=== PATIENT | male | born 1975 | race African-American/Black ===

== ENCOUNTER → 2018-04-12 | Outpatient (CLI) | payer BC | LOC: COL.RAD 08:59 | DX: R74.0 Nonspecific elevation of levels of transaminase and lactic acid dehydrogenase [LDH] (principal) ==

== ENCOUNTER 2019-09-06 10:59 | Emergency (ER) | payer BC ==
[~2019-09-06] VITALS: Ht 177.8 cm; Wt 97.7 kg
[~2019-09-06 10:59] MED LIST: CEPHALEXIN500 M1 PO; CIPRO 500MG TA500 MG PO; DESYREL 50MG50 MG PO; FAMVIR 500500 MG/TAB PO; LORTAB 5/500 501 TAB PO; LOZOL1.25 MG PO; MUCINEX 60600 MG/TA1 PO; MULTI VITAMINS1 TAB PO; NO HOME MEDICATIONS; PERCOCET 325 MG1 TA2 PO; ZESTRIL 10MG10 MG PO
[2019-09-06 12:12] LABS: BASO % 0.2 % (0.0-2.0); EOS % 0.2 % (0-4.0); GRAN # 8.5 (1.4-6.5); HEMATOCRIT 44.6 % (42.0-52.0); HEMOGLOBIN 14.9 g/dl (13.5-18.0); LYMPH # 1.9 (1.2-3.4); LYMPH % 17.1 % (20.0-51.0); MEAN CELL VOLUME 89 fl (80.0-100.0); MEAN CORPUSCULAR HEMOGLOBIN 30 pg (27.0-31.0); MEAN CORPUSCULAR HGB CONC 33 g/dl (33.0-37.0); MEAN PLATELET VOLUME 12.2 fl (7.4-10.4); MONO # 0.8 (0.1-0.6); MONO % 7.3 % (1.7-9.3); PLATELET COUNT 238 K/mm3 (130-400); RED BLOOD COUNT 5.01 M/mm3 (4.20-5.60); REDCELL DISTRIBUTION WIDTH-CV 11.6 % (11.5-14.5)
[2019-09-06 13:04] LABS: ALBUMIN 4.4 gm/dL (3.5-5.0); C-REACTIVE PROTEIN 4.9 mg/dL (0.0-0.9); CALCIUM 9.3 mg/dL (8.4-10.2); CREATININE, serum 1.17 (0.66-1.25); POTASSIUM 3.3 mmol/L (3.4-5.0); TOTAL PROTEIN 8.7 gm/dL (6.4-8.2)
[2019-09-06 13:12] LABS: TROPONIN-I 0.017 ng/mL (0.000-0.035)
[2019-09-06 17:21] VITALS: BP 112/82; PULSE 61; TEMP 98.9
[2019-09-06] MEDS ORDERED: ZOFRAN ODT4 MG PO (17:35)
== END 2019-09-06 17:21 | disposition home or self-care (01) ==
LOC: COL.ER 10:59
PROVIDERS: Physician Assistant
DX: R06.02 Shortness of breath (principal); R11.0 Nausea; I10 Essential (primary) hypertension; Z88.1 Allergy status to other antibiotic agents; Z20.828 Contact with and (suspected) exposure to other viral communicable diseases
CPT/HCPCS: J2405; J7030

== ENCOUNTER → 2022-05-04 | Outpatient (CLI) | payer BC ==
[~2022-05-04] MED LIST changes: +PRILOSEC 20MG20 MG PO; +ZOFRAN ODT4 MG PO
== END ==
LOC: COL.PUL 10:53
DX: Z00.00 Encounter for general adult medical examination without abnormal findings (principal); I10 Essential (primary) hypertension; G47.9 Sleep disorder, unspecified; M13.0 Polyarthritis, unspecified; M47.816 Spondylosis without myelopathy or radiculopathy, lumbar region; K76.0 Fatty (change of) liver, not elsewhere classified; G47.33 Obstructive sleep apnea (adult) (pediatric); R79.89 Other specified abnormal findings of blood chemistry; R06.09 Other forms of dyspnea

== ENCOUNTER 2022-05-20 08:07 | Emergency (ER) | payer BC ==
[~2022-05-20] VITALS: Ht 175.3 cm; Wt 95.0 kg
[2022-05-20 08:12] VITALS: TEMP 97.3
[2022-05-20 08:40] LABS: BASO # 0.1 K/mm3 (0.0-0.2); BASO % 0.4 % (0.0-2.0); EOS # 0.1 K/mm3 (0.0-0.7); EOS % 1.1 % (0.0-4.0); GRAN # 8.5 K/mm3 (1.4-6.5); GRAN % 70.6 % (42.2-75.2); HEMATOCRIT 44.8 % (42.0-52.0); HEMOGLOBIN 14.8 g/dl (13.5-18.0); LYMPH # 2.6 K/mm3 (1.2-3.4); LYMPH % 21.3 % (20.0-51.0); MEAN CELL VOLUME 91 fl (80.0-100.0); MEAN CORPUSCULAR HEMOGLOBIN 30 pg (27-31); MEAN CORPUSCULAR HGB CONC 33 g/dl (33.0-37.0); MEAN PLATELET VOLUME 12.5 fl (7.4-10.4); MONO # 0.8 K/mm3 (0.1-0.6); MONO % 6.3 % (1.7-9.3); PLATELET COUNT 183 K/mm3 (130-400); RED BLOOD COUNT 4.93 M/mm3 (4.20-5.60); REDCELL DISTRIBUTION WIDTH-CV 12.3 % (11.5-14.5)
[2022-05-20 08:53] LABS: ALBUMIN 4.1 gm/dL (3.5-5.0); BILIRUBIN,TOTAL 1.5 mg/dL (0.2-1.2); CALCIUM 9.4 mg/dL (8.4-10.2); CREATININE, serum 1.5 mg/dL (0.72-1.25); POTASSIUM 3.9 mmol/L (3.5-4.5); TOTAL PROTEIN 7.2 gm/dL (6.2-8.1)
[2022-05-20 08:59] LABS: TROPONIN-I 0.026 ng/mL (0.00-0.033)
[2022-05-20 11:52] VITALS: BP 148/111; PULSE 110
== END 2022-05-20 11:53 | disposition home or self-care (01) ==
LOC: COL.ER 08:07
PROVIDERS: Emergency Medicine
DX: I11.0 Hypertensive heart disease with heart failure (principal); I50.9 Heart failure, unspecified; D72.829 Elevated white blood cell count, unspecified; Z86.16 Personal history of COVID-19; Z28.310 Unvaccinated for COVID-19
CPT/HCPCS: J1885; J2405; Q9967

== ENCOUNTER 2022-06-14 09:06 | Day surgery (SDC) | payer BC ==
[2022-06-14] VITALS (11 sets, daily range): BP systolic 99–117; BP diastolic 74–88; PULSE 75–90; TEMP 97.8
[~2022-06-14] VITALS: Ht 175.3 cm; Wt 92.6 kg
[2022-06-14 10:15] LABS: HEMATOCRIT 40.2 % (42.0-52.0); HEMOGLOBIN 13.1 g/dl (13.5-18.0); MEAN CELL VOLUME 89 fl (80.0-100.0); MEAN CORPUSCULAR HEMOGLOBIN 29 pg (27-31); MEAN CORPUSCULAR HGB CONC 33 g/dl (33.0-37.0); MEAN PLATELET VOLUME 12.1 fl (7.4-10.4); PLATELET COUNT 168 K/mm3 (130-400); RED BLOOD COUNT 4.53 M/mm3 (4.20-5.60); REDCELL DISTRIBUTION WIDTH-CV 12.4 % (11.5-14.5)
[2022-06-14 10:18] LABS: INR 1.5 (0.8-3.0); PROTHROMBIN TIME 17.3 SECONDS (9.7-12.8)
[2022-06-14 10:20] LABS: PARTIAL THROMBOPLASTIN TIME 31.2 SECONDS (26.0-37.0)
[2022-06-14 10:31] LABS: CREATININE, serum 1.81 mg/dL (0.72-1.25); POTASSIUM 3.9 mmol/L (3.5-4.5)
[2022-06-14] MEDS ORDERED: MOBIC15 MG PO (10:36)
[2022-06-14] MEDS ORDERED: LASIX 40MG TABL40 MG PO (10:36)
[2022-06-14] MEDS ORDERED: FLAGYL500 MG PO (10:37)
[2022-06-14] MEDS ORDERED: ALDACTONE 25MG25 M1 PO (10:58)
[2022-06-14] MEDS ORDERED: PROTONIX 40MG T40 MG PO (10:59)
[2022-06-14] MEDS ORDERED: K-DUR20 MEQ PO (10:59)
[2022-06-14] MEDS ORDERED: ASPIRIN E.C. 8181 MG PO (11:00)
[2022-06-14] MEDS ORDERED: ZIAC 2.5/6.25MG1 TAB PO (11:00)
[2022-06-14] MEDS ORDERED: DESYREL DIVIDO150 M1 PO (11:00)
--- NOTE | 2022-06-14 12:39 | NUR ---
RECEIVED PT BACK FROM [facility]. VITALS WNL. RIGHT RADIAL SITE CLEAN AND DRY
[2022-06-14] MEDS ORDERED: LASIX 20MG TABL20 MG PO (13:49)
--- NOTE | 2022-06-14 14:40 | NUR ---
BEGAN RELEASING AIR FROM BAND- 2MLS. SLIGHT OOZING WILL HOLD HERE FOR 15 MINUTES. THEN CONTINUE RELEASING IF NO COMPLICATIONS
--- NOTE | 2022-06-14 16:45 | NUR ---
PT ABLE TO GET UP, USE RESTROOM AND GET DRESSED WITH NO BLEEDING. TR BAND REMOVED, SITE CLEANED AND BANDAGE PLACED. IV REMOVED. DISCHARGE INSTRUCTIONS GONE OVER WITH PT AND PARTNER. BOTH STATE UNDERSTANDING. WHEELED PT OUT AND ASSISTED INTO VEHICLE
[2022-06-14 17:11] LABS: COLLECTION METHOD CLEAN CATCH
[2022-06-14 17:16] LABS: MUCOUS Present (NOT PRESENT); SQUAMOUS EPITHELIAL None Seen /hpf (0-10); URINE BACTERIA Rare /hpf (NONE SEEN); URINE RBC 0-2 /hpf (0-2); URINE WBC 0-2 /hpf (0-2)
[2022-06-14 17:23] LABS: URINE APPEARANCE Clear (CLEAR/HAZY); URINE COLOR Amber (YELLOW)
[2022-06-14 17:24] LABS: URINE BLOOD Negative (NEGATIVE); URINE GLUCOSE Negative (NEGATIVE); URINE KETONE Negative (NEGATIVE); URINE NITRATE Negative (NEGATIVE); URINE PROTEIN(semi-quant) 2+ (NEGATIVE); URINE UROBILINOGEN 0.2 E.U/dL (0.2-1.0)
== END 2022-06-14 16:45 | disposition home or self-care (01) ==
LOC: COL.CAR 09:06
PROVIDERS: Internal Medicine Cardiovascular Disease
DX: I42.0 Dilated cardiomyopathy (principal); R60.0 Localized edema; I34.0 Nonrheumatic mitral (valve) insufficiency; G47.33 Obstructive sleep apnea (adult) (pediatric); Z87.891 Personal history of nicotine dependence; Z79.82 Long term (current) use of aspirin; Z79.899 Other long term (current) drug therapy
CPT/HCPCS: C1769; J1644; J2250; J3010; Q9967

== ENCOUNTER → 2022-11-27 | Outpatient (CLI) | payer OTHER ==
[~2022-11-27] VITALS: Ht 175.3 cm; Wt 84.1 kg
[~2022-11-27] MED LIST changes: +ALDACTONE 25MG25 M1 PO; +ASPIRIN E.C. 8181 MG PO; +DESYREL DIVIDO150 M1 PO; +FLAGYL500 MG PO; +K-DUR20 MEQ PO; +LASIX 20MG TABL20 MG PO; +LASIX 40MG TABL40 MG PO; +LASIX 80MG TABL80 MG PO; +MOBIC15 MG PO; +PROTONIX 40MG T40 MG PO; +ZIAC 2.5/6.25MG1 TAB PO
[2022-11-27 12:58] VITALS: BP 116/83; PULSE 75; TEMP 97.2
--- NOTE | 2022-11-27 13:58 | NUR ---
Pt returns not enough fluid to drain. Pt to come in next week on Sunday at 0815 arrival and procedure time of 0900. Today procedure canceled.
== END ==
LOC: COL.RAD 12:13
DX: R18.8 Other ascites (principal); K76.0 Fatty (change of) liver, not elsewhere classified; R79.89 Other specified abnormal findings of blood chemistry; R14.0 Abdominal distension (gaseous)